=== PATIENT | male | born 1945 | race Caucasian/White ===

== ENCOUNTER 2017-10-29 19:23 | Emergency (ER) | payer OTHER ==
[~2017-10-29] VITALS: Ht 167.6 cm; Wt 73.7 kg
[~2017-10-29 19:23] MED LIST: ALLOPURINOL100 MG PO; ASPIR 8181 M1 PO; ASPIR-TRIN325 M1 PO; ATORVASTATIN CA40 MG PO; COLACE100 MG PO; DULCOLAX5 MG PO; EFFIENT10 MG PO; ENDOCET 5-3251 EACH PO; Flomax PO; HABITROL,NICODE14 MG TD; LIDODERM 5% P1 PATCH TD; LIPITOR5 MG PO; LIPITOR80 MG PO; LISINOPRIL5 MG PO; Lopressor PO; MACROBID100 MG PO; METOPROLOL TART50 MG PO; MILK OF MAGN PO; MOTRIN800 MG PO; Milk Of Magnesia,MOM PO; NEURONTIN300 MG PO; NITROSTAT,NITR0.4 M1 SL; NITROSTAT0.4 MG SL; NORCO 5/3251 TABLET PO; PHILLIPS500 MG PO; PLAVIX75 MG PO; TAMIFLU75 MG PO; Tylenol Regular Stre PO; Xanax PO; ZANAFLEX2 MG PO; ZITHROMAX Z-PA250 MG PO; Zestril,Prinivil PO
[2017-10-29 20:16] LABS: HEMATOCRIT 42.7 % (38.0-50.0); HEMOGLOBIN 14.8 G/DL (12.5-16.6); MCH 31.2 PG (29.0-34.0); MCHC 34.7 G/DL (30.0-36.0); MCV 89.9 FL (86-99); PLATELET COUNT 210 K/uL (156-360); RBC DIS.WIDTH-CV 13.6 % (11.8-14.6); RBC DIS.WIDTH-SD 44.9 % (39-53); RED BLOOD COUNT 4.75 M/uL (4.00-5.50); WHITE BLOOD COUNT 11.7 K/uL (4.1-10.2)
[2017-10-29 20:24] LABS: CHLORIDE 109 mEq/L (99-109); POTASSIUM 3.8 mEq/L (3.7-5.4); SODIUM 138 mEq/L (136-147)
[2017-10-29 20:26] LABS: GLUCOSE 121 mg/dL (70-99)
[2017-10-29 20:30] LABS: GFR ESTIMATE (CALCULATED) > 59 mL/min/ (58.99-99999)
[2017-10-29 20:31] LABS: UREA NITROGEN (BUN) 13 mg/dL (9-23)
[2017-10-29] MEDS ORDERED: PROAIR HFA8.5 GM IH (21:40)
[2017-10-29] MEDS ORDERED: ZITHROMAX250 MG PO (21:40)
[2017-10-29] MEDS ORDERED: AUGMENTIN875 MG PO (21:40)
[2017-10-29 21:48] VITALS: BP 117/75
== END 2017-10-29 21:48 | disposition home or self-care (01) ==
LOC: EME 19:23
DX: J18.9 Pneumonia, unspecified organism (principal); J44.0 Chronic obstructive pulmonary disease with (acute) lower respiratory infection; I10 Essential (primary) hypertension; E78.5 Hyperlipidemia, unspecified; K21.9 Gastro-esophageal reflux disease without esophagitis; I25.10 Atherosclerotic heart disease of native coronary artery without angina pectoris; I25.2 Old myocardial infarction; Z95.5 Presence of coronary angioplasty implant and graft; Z95.1 Presence of aortocoronary bypass graft; F17.200 Nicotine dependence, unspecified, uncomplicated; Z88.5 Allergy status to narcotic agent; Z79.82 Long term (current) use of aspirin
CPT/HCPCS: 71046; 80048; 85027; 99281; 99284

== ENCOUNTER → 2017-11-06 | Outpatient (CLI) | payer OTHER ==
[~2017-11-06] MED LIST changes: +AUGMENTIN875 MG PO; +PROAIR HFA8.5 GM IH; +ZITHROMAX250 MG PO
== END | disposition home or self-care (01) ==
LOC: RAD 08:27
DX: R91.8 Other nonspecific abnormal finding of lung field (principal)
CPT/HCPCS: 71046

== ENCOUNTER 2018-03-01 15:54 | Emergency (ER) | payer OTHER ==
[~2018-03-01] VITALS: Ht 167.6 cm; Wt 75.0 kg
[2018-03-01] MEDS ORDERED: ULTRAM50 MG PO (16:42)
[2018-03-01 17:22] VITALS: BP 143/83
== END 2018-03-01 17:22 | disposition home or self-care (01) ==
LOC: EME 15:54
DX: S63.257A Unspecified dislocation of left little finger, initial encounter (principal); Y09 Assault by unspecified means; Y92.239 Unspecified place in hospital as the place of occurrence of the external cause; Y99.0 Civilian activity done for income or pay; Z88.5 Allergy status to narcotic agent
CPT/HCPCS: 73130; 73140; 99281; 99283

== ENCOUNTER 2018-04-24 05:19 | Day surgery (SDC) | payer OTHER ==
[~2018-04-24] VITALS: Ht 167.6 cm; Wt 75.3 kg
[~2018-04-24 05:19] MED LIST changes: +ADVAIR HFA120 INHAL2 IH; -ALLOPURINOL100 MG PO; +DIOVAN40 MG PO; +FLOMAX0.4 MG PO; +LIPO-FLAVONO1 TABLET PO; +LOPRESSOR50 MG PO; +PHILLIPS' LAXA100 MG PO; +RANITIDINE HCL300 MG PO; +ULTRAM50 MG PO; +VENTOLIN HFA18 GM IH; +ZYLOPRIM100 MG PO
[2018-04-24 05:59] VITALS: BP 136/75
[2018-04-24 06:36] LABS: CHLORIDE 108 MEQ/L (99-109); GFR ESTIMATE (CALCULATED) > 59 mL/min/ (58.99-99999); GLUCOSE 101 mg/dL (70-99); POTASSIUM 3.8 MEQ/L (3.7-5.4); SODIUM 140 MEQ/L (136-147); UREA NITROGEN (BUN) 15 mg/dL (9-23)
[2018-04-24 08:45] VITALS: BP 165/100
[2018-04-24 09:50] VITALS: BP 154/70
== END 2018-04-24 10:00 | disposition home or self-care (01) ==
LOC: SDC 05:19
PROVIDERS: Orthopaedic Surgery
PROC: 0HBQXZX Excision of Finger Nail, External Approach, Diagnostic (ICD-10-PCS; principal; 2018-04-24)
DX: S60.122A Contusion of left index finger with damage to nail, initial encounter (principal); X58.XXXA Exposure to other specified factors, initial encounter; I10 Essential (primary) hypertension; J44.9 Chronic obstructive pulmonary disease, unspecified; K21.9 Gastro-esophageal reflux disease without esophagitis; I25.2 Old myocardial infarction; R73.03 Prediabetes; R91.1 Solitary pulmonary nodule; Z79.82 Long term (current) use of aspirin; Z95.1 Presence of aortocoronary bypass graft; Z95.5 Presence of coronary angioplasty implant and graft; I25.10 Atherosclerotic heart disease of native coronary artery without angina pectoris
CPT/HCPCS: 80048; 88305; J1885; J2405; J3010; S0020